=== PATIENT | male | born 1990 | race African-American/Black ===

== ENCOUNTER 2016-10-12 10:36 | Emergency (ER) | payer MEDICAID, OTHER ==
[~2016-10-12] VITALS: Ht 180.3 cm; Wt 80.8 kg
[2016-10-12 10:43] VITALS: Ht 180.3 cm; Wt 80.8 kg
[2016-10-12] MEDS ORDERED: PEN500 PO (12:17)
[2016-10-12] MEDS ORDERED: IBUP800T25 PO (12:17)
[2016-10-12] MEDS ORDERED: PRED20TA PO (12:17)
[2016-10-12] MEDS ORDERED: predniSONE 20 MG TAB PO ONE (12:30)
[2016-10-12] MEDS ORDERED: PENICILLIN G BENZ 1.2 MIL UNIT SYG IM ONE (12:30)
[2016-10-12] MEDS ORDERED: IBUPROFEN 800 MG TAB PO ONE (12:30)
--- NOTE | 2016-10-12 14:49 | ERD ---
DATE OF SERVICE: 10/12/2016 HISTORY OF PRESENT ILLNESS: The patient is a 26-year-old male coming in complaining of sore throat, started 3 days ago. The patient has had fevers at home. He took naproxen last night. No medicati on today. He has not checked his fever at home, he had tactile fevers. Has no cough. Has an occas ional runny nose. Denies any other sick contacts. PAST MEDICAL HISTORY: Denies any medical problems. ALLERGIES TO MEDICATIONS: DENIES. SURGICAL HISTORY: Knee surgery in 2008. SOCIAL HISTORY: Denies. REVIEW OF SYSTEMS: A 12-point review of systems was done. Refer to HPI for positives, all other sy stems negative. PHYSICAL EXAMINATION VITAL SIGNS: Temperature is 98.4, pulse 91, blood pressure is 126/75, respiratory rate 16, O2 satur ation 96% on room air. Pain intensity of 5/10. GENERAL: The patient is well-appearing, well-nourished, no acute distress. HEENT: There is erythema noted to bilateral tonsils. Uvula midline with exudate. No unilateral to nsillar fullness or fullness noted to the posterior oropharynx. TMs within normal limits. No eryth nolvia or bulging of the TMs with no perforation. NECK: C-spine is soft and supple. There is no meningismus. Positive cervical lymphadenopathy. No JV D. No bruits. No goiter. CHEST: Clear to auscultation bilaterally. There are no rales, wheezes or rhonchi. HEART: Regular rate and rhythm. No murmurs, clicks, rubs or gallops. No S3 or S4. EMERGENCY ROOM COURSE: The patient was given IM injection of penicillin, oral prednisone and oral i buprofen. DIAGNOSIS: Strep, presumed. MEDICAL DECISION MAKING: I have low suspicion for peritonsillar or retropharyngeal abscess. Low peng spicion for meningitis or sepsis. The patient's exam is concerning for strep; however, in his age g roup he may have mono. I will discharge the patient with strict mono precautions, to avoid blunt tr auma to prevent the risk of splenic rupture. DISCHARGE: The patient is discharged stable. The patient given a prescription for prednisone, napr oxen and penicillin, and told to follow up with primary care within 1 to 2 days for reevaluation. T he patient was told if symptoms progress or worsen, to return to the ER. All other questions answer ed at time of discharge. Discharge summary given at the time of departure. The patient understood and complied with plan. Dictated By: LAURIE FUENTES for GEORGES VALDEZ/SOURAV Conf#: [id number] DID#: [id number]
== END 2016-10-12 13:00 | disposition home or self-care (01) ==
LOC: FTE 10:36
DX: J02.9 Acute pharyngitis, unspecified (principal)
CPT/HCPCS: 96372; J0561; J7512; Z7502; Z7610

== ENCOUNTER 2018-04-09 11:44 | Emergency (ER) | END 2018-04-09 13:33 | disposition home or self-care (01) ==

== ENCOUNTER 2018-10-27 15:35 | Emergency (ER) | payer OTHER ==
[~2018-10-27] VITALS: Ht 175.3 cm; Wt 88.0 kg
[~2018-10-27 15:35] MED LIST: AMOX500C2 PO; IBUP800T48 PO; PENI500T PO; PRED20TA PO
[2018-10-27 16:11] VITALS: Ht 175.3 cm; Wt 88.0 kg
--- NOTE | 2018-10-27 20:33 | ERD ---
ER Documentation Chief Complaint Chief Complaint SORE THROAT WITH FEVER/BODY ACHES/[place] X 4 DAYS HPI 28-year-old male, presents to the emergency department, complaining of sore throat, fever and general malaise for 4 days. The patient denies runny nose, no shortness of breath, no difficulty swallowing. The patient has been taking [id number] medication without improvement of the symptoms. ROS All systems reviewed and are negative except as per history of present illness. Medications Home Meds Active Scripts Promethazine Hcl* (Promethazine Hcl* Syrup) 6.25 Mg/5 Ml Syrup, 6.25 MG PO QHS PRN for NASAL CONGESTION, #60 ML Prov:JOSÉ MOORE MD 10/27/18 Ibuprofen* (Motrin*) 600 Mg Tab, 600 MG PO Q6H PRN for PAIN AND OR ELEVATED TEMP, #20 TAB Prov:JOSÉ MOORE MD 10/27/18 Azithromycin* (Zithromax*) 250 Mg Tablet, 250 MG PO .ZPACK DIRECTED, #6 TAB TAKE 500 MG (2 TABS) THE FIRST DAY THEN 250 MG (1 TAB) DAYS 2-5 Prov:JOSÉ MOORE MD 10/27/18 Amoxicillin* (Amoxicillin*) 500 Mg Cap, 500 MG PO TID for 10 Days, CAP Prov:DELANO NGUYEN 04/09/18 Prednisone* (Prednisone*) 20 Mg Tab, 40 MG PO DAILY for 4 Days, TAB Prov:BIB SMITH PA-C 10/12/16 Ibuprofen* (Motrin*) 800 Mg Tab, 800 MG PO Q6, #30 TAB Prov:BIB SMITH PA-C 10/12/16 Penicillin V Potassium* (Penicillin V K*) 500 Mg Tab, 500 MG PO BID for 10 Days, TAB Prov:BIB SMITH PA-C 10/12/16 Allergies Allergies: Coded Allergies: No Known Allergy (Unverified , 10/12/16) PMhx/Soc Hx Alcohol Use: Yes (OCCASSIONALLY) Hx Substance Use: No Hx Tobacco Use: No FmHx Family History: No diabetes, No coronary disease Physical Exam Vitals Vital Signs Date Temp Pulse Resp B/P (MAP) Pulse Ox O2 O2 Flow FiO2 Time Delivery Rate 10/27/18 100.0 18:35 10/27/18 100.9 90 18 134/63 99 16:11 (86) Physical Exam Patient is in moderate distress due to fever, vital signs showed fever. EYES: PERRLA, EOMI, injected sclerae EARS: Canals clear, erythematous tympanic membranes THROAT: Erythematous oropharynx with bilateral exudates NECK: Supple, + tender cervical lymphadenopathy. Full ROM without pain or tenderness. HEART: RRR, no rubs, murmurs, clicks or gallops. LUNGS: Bilateral rhonchi to auscultation. ABDOMEN: Soft, non-tender without masses or hepatosplenomegaly. EXTREMITIES: No edema bilaterally. BACK: Full ROM, no deformity, normal back exam NEURO: Cranial nerves grossly intact, no motor or sensory deficit Results 24 hrs Current Medications Medications Dose Sig/Cong Start Time Status Last (Trade) Ordered Route PRN Stop Time Admin Dose Reason Admin Ibuprofen 400 mg ONCE ONCE 10/27/18 (Motrin) PO 21:00 10/27/18 21:01 650 mg ONCE ONCE 10/27/18 Acetaminophen PO 21:00 (Tylenol 10/27/18 21:01 Tab) Procedures/MDM Differential diagnosis include but not limited to: Tonsillar/pharyngeal infection bacterial/viral/fungal, parotitis, allergies, GERD. Less likely peritonsillar abscess, retropharyngeal abscess. No signs of upper respiratory obstruction Physical examination and clinical presentation consistent most likely with acute suppurative tonsillitis. Centor criteria 4/5. During the ED course the patient remained stable, fever resolved with medications given in the ER, no new complaints. Clinical impression discussed with the patient who agrees with management. The patient is stable to be treated outpatient and will be discharged home with a Rx for antibiotic and ibuprofen. Some side effects of prescribed medications (headache, rash, nausea, vomiting, diarrhea, drowsiness, habituation, bleeding, hypertension, interactions with other medications) were reviewed. The patient was instructed to follow up with the primary care provider in the next 48h. If symptoms persist, worsen or new symptoms develop, then patient should return to the ED immediately. Disclaimer: Inadvertent spelling and grammatical errors are likely due to EHR/dictation software use and do not reflect on the overall quality of patient care. Also, please note that the electronic time recorded on this note does not necessarily reflect the actual time of the patient encounter. Departure Diagnosis: Primary Impression: Acute suppurative tonsillitis Condition: Stable Additional Instructions: Thank you very much for allowing us to participate in your care. Your health and safety is our top priority at [facility]. Call your primary care doctor TOMORROW for an appointment during the next 2-4 days and bring all the information and medications prescribed. Have prescriptions filled and follow precisely the directions on the label. If the symptoms get worse and your provider is unavailable, return to the Emergency Department immediately. JOSÉ MOORE MD Oct 27, 2018 20:33
[2018-10-27] MEDS ORDERED: IBUP-1542 PO (20:40)
[2018-10-27] MEDS ORDERED: AZIT250T PO (20:40)
[2018-10-27 20:41] VITALS: BP 125/71; PULSE 67; RESP 16
[2018-10-27] MEDS ORDERED: PROM6.2515 PO (20:41)
[2018-10-27] MEDS ORDERED: AZITHROMYCIN 250 MG TAB PO ONE (21:00)
[2018-10-27] MEDS ORDERED: IBUPROFEN 200 MG TAB PO ONE (21:00)
[2018-10-27] MEDS ORDERED: ACETAMINOPHEN 325 MG TAB PO ONE (21:00)
== END 2018-10-27 20:45 | disposition home or self-care (01) ==
LOC: FTE 15:35
DX: J03.90 Acute tonsillitis, unspecified (principal)
CPT/HCPCS: Z7502; Z7610; 99283